=== PATIENT | male | born 1960 | race Caucasian/White ===

== ENCOUNTER 2017-10-05 15:04 | Emergency (ER) | payer BC ==
[~2017-10-05] VITALS: Ht 182.9 cm; Wt 87.6 kg
[~2017-10-05 15:04] MED LIST: ATORVASTATIN CA80 MG PO; BYSTOLIC2.5 MG PO; BYSTOLIC5 MG PO; ENDUR-ACIN500 MG PO; HYDROCODON-ACE1 EAC7 PO; LO-DOSE ASPIRIN81 M1 PO
[2017-10-05] MEDS ORDERED: VALIUM5 MG PO (17:16)
[2017-10-05] MEDS ORDERED: PERCOCET 5/31 TABLET PO (17:16)
[2017-10-05] MEDS ORDERED: MOTRIN600 MG PO (17:16)
[2017-10-05 17:32] VITALS: BP 150/94
== END 2017-10-05 17:32 | disposition home or self-care (01) ==
LOC: EME 15:04
DX: M62.830 Muscle spasm of back (principal); M54.2 Cervicalgia; I10 Essential (primary) hypertension; Z79.82 Long term (current) use of aspirin; Z87.891 Personal history of nicotine dependence; Z86.79 Personal history of other diseases of the circulatory system; Z88.0 Allergy status to penicillin
CPT/HCPCS: 71046; 93005; 99281; 99284; J1885